=== PATIENT | female | born 1965 | race Asian ===

== ENCOUNTER 2023-03-14 14:44 | Outpatient (CLI) | payer BC | END 2023-03-14 14:45 | disposition home or self-care (01) | LOC: CSHMAMMO 14:44 | PROVIDERS: ATTEND Family Medicine | DX: Z12.31 Encounter for screening mammogram for malignant neoplasm of breast (principal) | CPT/HCPCS: 77063; 77067 ==

== ENCOUNTER 2024-02-06 10:12 | Outpatient (CLI) | payer BC | END 2024-02-06 10:13 | disposition home or self-care (01) | LOC: CSHRAD 10:12 | PROVIDERS: ATTEND Family Medicine | DX: R05.9 Cough, unspecified (principal) | CPT/HCPCS: 71046 ==